=== PATIENT | female | born 1960 | race Caucasian/White ===

== ENCOUNTER 2016-06-23 13:55 | Emergency (ER) | payer BC ==
[2016-06-23 14:08] VITALS: BP 156/103; PULSE 90; TEMP 98.5
[2016-06-23] MEDS ORDERED: SULFAMETHOXAZOLE/TRIMETHOPRIM 800MG/160MG D.S. TABLET PO ONE (14:32)
--- NOTE | 2016-06-23 14:33 | PDOC ---
History of Present Illness - General History Source: Patient Exam Limitations: No Limitations <Luis Enrique Quintero - Last Filed: 06/23/16 14:33> - General History Source: Patient Exam Limitations: No Limitations - History of Present Illness Initial Comments: 06/23/16 14:40 The patient is a 56 year old female with no significant past medical history, who presents to the ED with right buttox abcsess. She noticed a small boil several days ago that developed into a large boil. Denies fevers or chills. Reported started draining. Denies contact, shaving, trauma. Denies fever, chills, nausea, vomiting. <Eliu Moreno - Last Filed: 06/23/16 14:41> - General Chief Complaint: Abscess Boil Stated Complaint: RIGHT BUTTOCK ABSCESS Time Seen by Provider: 06/23/16 13:59 Past History - Surgical History Appendectomy: Yes - Psycho/Social/Smoking Cessation Hx Anxiety: No Suicidal Ideation: No Smoking History: Never smoked Hx Alcohol Use: Yes (SOCIAL) Drug/Substance Use Hx: No Substance Use Type: None <Luis Enrique Quintero - Last Filed: 06/23/16 14:33> <Eliu Moreno - Last Filed: 06/23/16 14:41> - Past Medical History Allergies/Adverse Reactions: Allergies Allergy/AdvReac Type Severity Reaction Status Date / Time No Known Allergies Allergy Verified 06/23/16 14:00 Home Medications: Ambulatory Orders Sulfamethoxazole/Trimethoprim [Bactrim Ds -] 1 tab PO BID #14 tablet 06/23/16 Review of Systems - Review of Systems Able to Perform ROS?: Yes Comments:: 06/23/16 14:40 GENERAL/CONSTITUTIONAL: No fever or chills. No weakness. HEAD, EYES, EARS, NOSE AND THROAT: No change in vision. No ear pain or discharge. No sore throat. CARDIOVASCULAR: No chest pain or shortness of breath. RESPIRATORY: No cough, wheezing, or hemoptysis. GASTROINTESTINAL: No nausea, vomiting, diarrhea or constipation. GENITOURINARY: No dysuria, frequency, or change in urination. MUSCULOSKELETAL: No joint or muscle swelling or pain. No neck or back pain. SKIN: No rash. Boil on right buttox. NEUROLOGIC: No headache, vertigo, loss of consciousness, or change in strength/ sensation. ENDOCRINE: No increased thirst. No abnormal weight change. HEMATOLOGIC/LYMPHATIC: No anemia, easy bleeding, or history of blood clots. ALLERGIC/IMMUNOLOGIC: No hives or skin allergy. <Eliu Moreno - Last Filed: 06/23/16 14:41> *Physical Exam - Vital Signs Last Vital Signs Temp Pulse Resp BP Pulse Ox 98.5 F 90 15 156/103 98 06/23/16 13:59 06/23/16 13:59 06/23/16 13:59 06/23/16 13:59 06/23/16 13:59 <Luis Enrique Quintero - Last Filed: 06/23/16 14:33> - Vital Signs Last Vital Signs Temp Pulse Resp BP Pulse Ox 98.5 F 90 15 156/103 98 06/23/16 13:59 06/23/16 13:59 06/23/16 13:59 06/23/16 13:59 06/23/16 13:59 - Physical Exam Comments: 06/23/16 14:41 GENERAL: Awake, alert, and fully oriented, in no acute distress HEAD: No signs of trauma EYES: PERRLA, EOMI, sclera anicteric, conjunctiva clear ENT: Auricles normal inspection, hearing grossly normal, nares patent, oropharynx clear without exudates. Moist mucosa NECK: Normal ROM, supple, no lymphadenopathy, JVD, or masses LUNGS: Breath sounds equal, clear to auscultation bilaterally. No wheezes, and no crackles HEART: Regular rate and rhythm, normal S1 and S2, no murmurs, rubs or gallops ABDOMEN: Soft, nontender, normoactive bowel sounds. No guarding, no rebound. No masses EXTREMITIES: Normal range of motion, no edema. No clubbing or cyanosis. No cords, erythema, or tenderness NEUROLOGICAL: Cranial nerves II through XII grossly intact. Normal speech, normal gait SKIN: 4x4 cm abscess induration with the center of fluctuance with mild drainage. Not involving the rectum. Warm, Dry, normal turgor. <Eliu Moreno - Last Filed: 06/23/16 14:41> Procedures - Incision and Drainage I&D Site: Right: Buttock Anesthesia: 1% Lidocaine Volume(ml): 1 Blade Size: 11 Attempts: 1 Iodinated Packin/4 in Plain Packing: No <Luis Enrique Quintero - Last Filed: 06/23/16 14:33> ED Treatment Course - Medications Given in the ED: ED Medications Discontinued Medications Generic Name Dose Route Start Last Admin Trade Name Ekta PRN Reason Stop Dose Admin Trimethoprim/Sulfamethoxazole 1 each 06/23/16 14:32 06/23/16 14:37 Bactrim Ds - PO 06/23/16 14:33 1 each ONCE ONE Administration <Eliu Moreno - Last Filed: 06/23/16 14:41> Medical Decision Making - Medical Decision Making 06/23/16 14:28 A portion of this note was documented by scribe services under my direction. I have reviewed the details of the note, within reason, and agree with the documentation with the following case summary and management plan written by me. Patient treated in the ED. Nursing notes are reviewed and incorporated into the medical decision-making. Vital signs reviewed. Peripheral IV access obtained by the nurse, laboratory studies are drawn and sent, reviewed and interpreted by myself. Vital Signs Temp Pulse Resp BP Pulse Ox 98.5 F 90 15 156/103 98 06/23/16 13:59 06/23/16 13:59 06/23/16 13:59 06/23/16 13:59 06/23/16 13:59 56-year-old female no past medical history presents with right buttocks abscess. She noticed a small boil several days ago that developed into a large boil. Denies fevers or chills. Reported started draining. Denies contact, shaving, trauma. Local injection was made with 1% lidocaine without epinephrine with 1 mL. Approximately a 0.5 cm incision was made with approximately 5 mL serosanguinous fluid. Wound was packed with quarter inch iodine packing. Bactrim was ordered for surrounding cellulitis. Wound culture was obtained. Patient instructed to return to the ER 2 days for wound packing. I discussed the physical exam findings, ancillary test results and final diagnoses with the patient. I answered all of the patient's questions. The patient was satisfied with the care received and felt comfortable with the discharge plan and treatment plan. The patient will call their primary care physician within 24 hours to arrange follow-up and will return to the Emergency Department with any new, persistant or worsening symptoms. <Luis Enrique Quintero - Last Filed: 06/23/16 14:33> *DC/Admit/Observation/Transfer - Discharge Dispostion Admit: No <Luis Enrique Quintero - Last Filed: 06/23/16 14:33> - Attestations Scribe Attestion: 06/23/16 14:41 Documentation prepared by Eliu Moreno, acting as medical delivery technician for Luis Enrique Quintero MD, MD. <Eliu Moreno - Last Filed: 06/23/16 14:41> Diagnosis at time of Disposition: Abscess - Discharge Dispostion Disposition: HOME Condition at time of disposition: Good - Prescriptions Prescriptions: Sulfamethoxazole/Trimethoprim [Bactrim Ds -] 1 tab PO BID #14 tablet - Patient Instructions Printed Discharge Instructions: DI for Incision and Drainage of a Skin Abscess Additional Instructions: Please take the antibiotics Bactrim every 12 hours for next 7 days. It is very important to finishing complete antibiotics. Take 650 g of Tylenol every 4 hours needed for pain. Please try to keep the packing in. The wound may continue to lead which is normal. Please change dressings as needed. Please return to the ER 2 days for wound evaluation. You may need to have the packing exchanged.
[2016-06-23] MEDS ORDERED: SULFAMETHOXAZOLE/TRIMETHOPRIM 800MG/160MG D.S. TABLET ONE (14:35)
--- NOTE | 2016-06-26 11:55 | PDOC ---
*Physical Exam - Vital Signs Last Vital Signs Temp Pulse Resp BP Pulse Ox 98.5 F 90 15 156/103 98 06/23/16 13:59 06/23/16 13:59 06/23/16 13:59 06/23/16 13:59 06/23/16 13:59 - Physical Exam Comments: 06/26/16 11:54 Report from laboratory on wound culture was reviewed. MRSA was identified. Sensitive to Bactrim. The patient is currently taking Bactrim post I&D, so antibiotic is appropriate. ED Treatment Course - ADDITIONAL ORDERS Additional order review: 06/23/16 14:40 Gram Stain - Final Buttock - Right Wound Culture - Preliminary Mr S Aureus - Medications Given in the ED: ED Medications Discontinued Medications Generic Name Dose Route Start Last Admin Trade Name Rustamq PRN Reason Stop Dose Admin Trimethoprim/Sulfamethoxazole 1 each 06/23/16 14:32 06/23/16 14:37 Bactrim Ds - PO 06/23/16 14:33 1 each ONCE ONE Administration *DC/Admit/Observation/Transfer Diagnosis at time of Disposition: Abscess - Discharge Dispostion Disposition: HOME Condition at time of disposition: Good - Prescriptions Prescriptions: Sulfamethoxazole/Trimethoprim [Bactrim Ds -] 1 tab PO BID #14 tablet - Referrals - Patient Instructions Printed Discharge Instructions: DI for Incision and Drainage of a Skin Abscess Additional Instructions: Please take the antibiotics Bactrim every 12 hours for next 7 days. It is very important to finishing complete antibiotics. Take 650 g of Tylenol every 4 hours needed for pain. Please try to keep the packing in. The wound may continue to lead which is normal. Please change dressings as needed. Please return to the ER 2 days for wound evaluation. You may need to have the packing exchanged. - Post Discharge Activity
== END 2016-06-23 14:45 | disposition home or self-care (01) ==
LOC: FER 13:55
PROC: 0H98XZZ Drainage of Buttock Skin, External Approach (ICD-10-PCS; principal; 2016-06-23)
DX: L02.31 Cutaneous abscess of buttock (principal)
CPT/HCPCS: 87070; 87186; 87205; 99282-25

== ENCOUNTER 2016-07-16 14:50 | Emergency (ER) | payer BC ==
--- NOTE | 2016-07-16 15:06 | PDOC ---
History of Present Illness - General Chief Complaint: Wound Stated Complaint: ABCESS ON LEFT BUTTOCKS Time Seen by Provider: 07/16/16 15:06 - History of Present Illness Initial Comments: 07/16/16 15:33 Chief complaint: Skin infection History of present illness: Abscess on the left buttock for several days. Red and painful. Swollen. Similar on the right side approximately 3 weeks ago treated with Bactrim. Resolved. Culture showed MRSA sensitive to Bactrim, clindamycin, linezolid, vancomycin, and tetracycline, intermediate to fluoroquinolones. Physical exam with normal vital signs, no fever There is an area of erythema and induration approximately 10 cm in length and 6 cm in width on the left buttock, not involving the chichi-anal area. The skin is hard, tender, and nonfluctuant. Impression: Cellulitis, no [place] abscess Plan: Warm Baths and antibiotic. Meticulous hygiene. Further surgical consultation resolution and especially if signs of abscess develop. Past History - Past Medical History Allergies/Adverse Reactions: Allergies Allergy/AdvReac Type Severity Reaction Status Date / Time No Known Allergies Allergy Verified 07/16/16 15:02 Home Medications: Ambulatory Orders Ibuprofen 800 mg PO TID PRN #20 tablet 07/16/16 Sulfamethoxazole/Trimethoprim [Bactrim Ds Tablet] 1 tab PO BID #20 tablet - Surgical History Appendectomy: Yes - Psycho/Social/Smoking Cessation Hx Anxiety: No Suicidal Ideation: No Smoking History: Never smoked Hx Alcohol Use: Yes (SOCIAL) Drug/Substance Use Hx: No Substance Use Type: None *DC/Admit/Observation/Transfer Diagnosis at time of Disposition: Cellulitis and abscess of buttock - Discharge Dispostion Disposition: HOME Condition at time of disposition: Stable Admit: No - Prescriptions Prescriptions: Sulfamethoxazole/Trimethoprim [Bactrim Ds Tablet] 1 tab PO BID #20 tablet Ibuprofen 800 mg PO TID PRN #20 tablet PRN Reason: Pain - Referrals Referrals: Joel Gurrola MD [Staff Physician] - 3 days - Patient Instructions Printed Discharge Instructions: DI for Cellulitis -- Adult Additional Instructions: Warm baths (sitz baths), avoid sitting, antibiotics as directed. Recheck in 3 days. - Post Discharge Activity Work/School Note: Back to Work
[2016-07-16 15:17] VITALS: BP 147/93; PULSE 95; TEMP 100.1; BMI 21.2
[2016-07-16] MEDS: DIPHTH,PERTUSS(ACELL),TET 0.5 ML DISP.SYRIN IM ONE (15:23)
== END 2016-07-16 15:34 | disposition home or self-care (01) ==
LOC: FER 14:50
PROC: 3E0234Z Introduction of Serum, Toxoid and Vaccine into Muscle, Percutaneous Approach (ICD-10-PCS; principal; 2016-07-16)
DX: L03.317 Cellulitis of buttock (principal); L02.31 Cutaneous abscess of buttock
CPT/HCPCS: 90715; 99281-25

== ENCOUNTER 2023-11-17 20:27 | Emergency (ER) | payer BC, OTHER ==
[2023-11-17 20:43] VITALS: BP 164/92; PULSE 67; RESP 18; TEMP 98.6; BMI 21.9
== END 2023-11-17 22:39 | disposition home or self-care (01) ==
LOC: FER 20:27
DX: R00.2 Palpitations (principal); R20.0 Anesthesia of skin; R20.2 Paresthesia of skin
CPT/HCPCS: 36415; 82550; 84443; 84484; 93005; 99284-25